=== PATIENT | male | born 1970 | race Caucasian/White ===

== ENCOUNTER 2017-01-03 21:04 | Emergency (ER) | payer OTHER ==
[~2017-01-03] VITALS: Ht 180.3 cm; Wt 139.2 kg
[~2017-01-03 21:04] MED LIST: ASPI81TA28 PO; ATOR-26 PO; DOCU-94 PO; HMLI SC; HYD10 PO; INSDGI SC; ISOS30TA3 PO; LEVO125T5 PO; NTRGSL/4 UT; NYSTOIN5; PRT/20 PO
[2017-01-03 21:16] VITALS: TEMP 36.8; Ht 180.3 cm; Wt 139.2 kg
[2017-01-03] MEDS ORDERED: KETOROLAC TROMETHAMINE 30 MG/ML VIAL IV STA (21:53)
[2017-01-03] MEDS ORDERED: SODIUM CHLORIDE 0.9% 500ML 500 ML IV STA (21:53)
[2017-01-03] MEDS ORDERED: SODIUM CHLORIDE 0.9% 1000ML 1,000 ML IV STA (21:53)
[2017-01-03 22:14] VITALS: O2SAT 98
[2017-01-03 22:20] LABS: BASO % 0.2 %; BASO ABS # 0.01 K/uL (0-0.2); COMPLETE YES; EOS % 1.6 %; HEMATOCRIT 37.3 % (42-52); IG% 0.2 %; LYMPH % 21.4 %; MEAN CORPUSCULAR HEMOGLOBIN 31.7 pg (25-34); MEAN CORPUSCULAR HGB CONC 34.9 g/dl (32-36); MEAN PLATELET VOLUME 11.6 fL (7.4-10.4); MONO % 5.7 %; NEUT % 70.9 %; PLATELET COUNT 190 K/uL (130-400)
--- NOTE | 2017-01-03 22:28 | DIAGNOSTIC IMAGING REPORT ---
SINGLE VIEW CHEST CLINICAL HISTORY: Atypical chest pain. FINDINGS: An AP, portable, upright chest radiograph is compared to study dated 08/07/2015. The patient is status post midline sternotomy. The cardiomediastinal silhouette is unremarkable. There is minimal bibasilar atelectasis. The lungs and pleural spaces are otherwise clear. No pneumothorax is seen. The bony thorax is grossly intact. IMPRESSION: No active disease in the chest. Electronically signed by: Adalberto Heart M.D. 01/03/2017 10:26 PM Dictated Date/Time: 01/03/2017 10:26 PM
[2017-01-03 22:38] LABS: ALT/SGPT 31 U/L (12-78); BLOOD UREA NITROGEN 25 mg/dl (7-18); BUN/CREATININE RATIO 22.6 (10-20); CARBON DIOXIDE 29 mmol/L (21-32); CHLORIDE 106 mmol/L (98-107); GLUCOSE 90 mg/dl (70-99); POTASSIUM 4.2 mmol/L (3.5-5.1); SODIUM 141 mmol/L (136-145)
[2017-01-03] MEDS ORDERED: HYDR10TA52 PO (22:39)
[2017-01-03] MEDS ORDERED: PANT40TA2 PO (22:39)
[2017-01-03] MEDS ORDERED: INSU100I SC (22:39)
[2017-01-03] MEDS ORDERED: INSDGI SC (22:39)
[2017-01-03 22:47] LABS: CALCIUM 8.6 mg/dl (8.5-10.1)
[2017-01-03 22:49] LABS: ALKALINE PHOSPHATASE 65 U/L (45-117); AST/SGOT 18 U/L (15-37)
[2017-01-03 23:16] LABS: LYME DISEASE AB IGM NEG (NEG)
[2017-01-03 23:17] LABS: LYME DISEASE AB IGG NEG (NEG)
--- NOTE | 2017-01-04 00:36 | EMERGENCY ROOM VISIT NOTE ---
History First contact with patient: 21:37 Chief Complaint: WRIST PAIN Stated Complaint: JOINTS HURT, BREAKING OUT ON CHESTM GAS History of Present Illness The patient is a 46 year old male who presents to the Emergency Room with complaints of myalgias, arthralgias, leg pain or swelling, intermittent heartburn for the past few days and fatigue. Patient also complains of a rash to his abdomen. Patient denies current chest pain, dyspnea, abdominal pain, fevers, headache, lightheadedness, dizziness. He is tolerating by mouth fluids and food. He is unsure if he was bitten by a tick. Review of Systems See HPI for pertinent positives & negatives. A total of 10 systems reviewed and were otherwise negative. Past Medical/Surgical History Medical Problems: (1) Diabetes (2) Heart disease (3) Traumatic injury of head Surgical Problems: (1) Hx of CABG Family History Cancer Diabetes mellitus FH: heart disease Social History Smoking Status: Never Smoker Alcohol Use: occasionally Drug Use: cocaine Marital Status: Housing Status: lives with significant other Occupation Status: employed Current/Historical Medications Scheduled Aspirin (Aspirin Ec), 81 MG PO DAILY Atorvastatin (Lipitor), 80 MG PO DAILY Docusate Sodium (Colace), 200 MG PO QAM Hydrocortisone (Cortef), 10 MG PO QAM Insulin Glargine (Lantus), 30 UNITS SC QPM Insulin Lispro (Human) (Humalog), 1 DOSE SC UD Levothyroxine Sodium (Levothyroxine Sodium), 125 MCG PO DAILY Pantoprazole (Pantoprazole Sodium), 40 MG PO DAILY Allergies Coded Allergies: No Known Allergies (Unverified , 09/09/15) Physical Exam Vital Signs Date Time Temp Pulse Resp B/P Pulse Ox O2 Delivery O2 Flow Rate FiO2 01/03/17 23:14 80 20 123/72 95 01/03/17 22:22 83 20 112/71 98 Room Air 01/03/17 22:15 86 01/03/17 22:14 98 Room Air 01/03/17 22:14 98 Room Air 01/03/17 21:16 36.8 92 18 119/71 95 Room Air Physical Exam VITALS: Vitals are noted on the nurse's note and reviewed by myself. Vital signs stable. GENERAL: Pleasant male, in no acute distress, nondiaphoretic, well-developed well-nourished. SKIN: Abdomen with 4 1 cm x 1 cm circular erythematous nonraised blanchable dermatitis The rest of the skin was without rashes, erythema, edema, or bruising. There is no tenting of the skin. Capillary reflex less than 2 seconds. HEAD: Normocephalic atraumatic. EARS: External auditory canals clear, tympanic membranes pearly figueroa without erythema or effusion bilaterally. EYES: Pupils equal round and reactive to light and accommodation. Conjunctivae without injection, sclerae without icterus. Extraocular movements intact. NOSE: Patent, turbinates without inflammation or discharge. MOUTH: Mucous membranes moist. Pharynx without erythema or exudate. Uvula midline. Airway patent. Tongue does not deviate. NECK: Supple without nuchal rigidity. No lymphadenopathy. No thyromegaly. Cervical spine is nontender. No JVD. HEART: Regular rate and rhythm without murmurs gallops or rubs. LUNGS: Clear to auscultation bilaterally without wheezes, rales or rhonchi. No dullness to percussion. No retractions or accessory muscle use. ABDOMEN: Positive bowel sounds x 4. Normal tympanic percussion. Soft, protuberant, obese, nontender, without masses or organomegaly. Fuller sign negative. No guarding or rebound tenderness. MUSCULOSKELETAL: No muscle atrophy, erythema, noted. Trace pedal edema bilaterally. Varicose veins bilaterally to the lower extremity is. Bilateral calves minimally tender to palpation. Pedal pulses +2 equal present bilaterally. NEURO: Patient was alert and oriented to person place and time. Normal sensation to light and sharp touch. No focal neurological deficits. Medical Decision & Procedures Laboratory Results 01/03/17 22:10 Red Blood Count 4.10, Mean Corpuscular Volume 91.0, Mean Corpuscular Hemoglobin 31.7, Mean Corpuscular Hemoglobin Concent 34.9, Mean Platelet Volume 11.6, Neutrophils (%) (Auto) 70.9, Lymphocytes (%) (Auto) 21.4, Monocytes (%) (Auto) 5.7, Eosinophils (%) (Auto) 1.6, Basophils (%) (Auto) 0.2, Neutrophils # (Auto) 3.97, Lymphocytes # (Auto) 1.20, Monocytes # (Auto) 0.32, Eosinophils # (Auto) 0.09, Basophils # (Auto) 0.01 01/03/17 22:10 Test 01/03/17 22:10 White Blood Count 5.60 K/uL (4.8-10.8) Red Blood Count 4.10 M/uL (4.7-6.1) Hemoglobin 13.0 g/dL (14.0-18.0) Hematocrit 37.3 % (42-52) Mean Corpuscular Volume 91.0 fL (80-100) Mean Corpuscular Hemoglobin 31.7 pg (25-34) Mean Corpuscular Hemoglobin Concent 34.9 g/dl (32-36) Platelet Count 190 K/uL (130-400) Mean Platelet Volume 11.6 fL (7.4-10.4) Neutrophils (%) (Auto) 70.9 % Lymphocytes (%) (Auto) 21.4 % Monocytes (%) (Auto) 5.7 % Eosinophils (%) (Auto) 1.6 % Basophils (%) (Auto) 0.2 % Neutrophils # (Auto) 3.97 K/uL (1.4-6.5) Lymphocytes # (Auto) 1.20 K/uL (1.2-3.4) Monocytes # (Auto) 0.32 K/uL (0.11-0.59) Eosinophils # (Auto) 0.09 K/uL (0-0.5) Basophils # (Auto) 0.01 K/uL (0-0.2) RDW Standard Deviation 43.4 fL (36.4-46.3) RDW Coefficient of Variation 13.1 % (11.5-14.5) Immature Granulocyte % (Auto) 0.2 % Immature Granulocyte # (Auto) 0.01 K/uL (0.00-0.02) Anion Gap 6.0 mmol/L (3-11) Est Creatinine Clear Calc Drug Dose 119.7 ml/min Estimated GFR () 92.8 Estimated GFR (Non- 80.1 BUN/Creatinine Ratio 22.6 (10-20) Calcium Level 8.6 mg/dl (8.5-10.1) Magnesium Level 2.0 mg/dl (1.8-2.4) Total Bilirubin 0.4 mg/dl (0.2-1) Direct Bilirubin < 0.1 mg/dl (0-0.2) Aspartate Amino Transf (AST/SGOT) 18 U/L (15-37) Alanine Aminotransferase (ALT/SGPT) 31 U/L (12-78) Alkaline Phosphatase 65 U/L (45-117) Troponin I < 0.015 ng/ml (0-0.045) Total Protein 7.2 gm/dl (6.4-8.2) Albumin 3.7 gm/dl (3.4-5.0) Thyroid Stimulating Hormone (TSH) 2.140 uIu/ml (0.300-4.500) Lyme Disease IgG Antibody NEG (NEG) Lyme Disease IgM Antibody NEG (NEG) Medications Administered Medications (Trade) Dose Ordered Sig/Oleg Route Start Time Stop Time Status Last Admin Dose Admin Ketorolac Tromethamine 30 mg 30 mg NOW STAT IV 01/03/17 21:53 01/03/17 21:56 DC 01/03/17 22:21 30 MG Sodium Chloride 1,000 ml @ 125 mls/hr Q8H STAT IV 01/03/17 21:53 01/04/17 05:52 01/03/17 22:21 125 MLS/HR Sodium Chloride (Nss 500ml) 500 ml @ 999 mls/hr Q31M STAT IV 01/03/17 21:53 01/03/17 22:23 DC 01/03/17 21:53 999 MLS/HR ED Course Prior records/ancillary studies reviewed and summarized above. Nursing notes reviewed. Additional history obtained from family. The patient's history was concerning for fatigue, joint pains, heartburn. Differential diagnosis: Etiologies such as metabolic, autoimmune, Lyme's, infection, hypo/hyperglycemia , electrolyte abnormalities, cardiac sources, intracerebral event, toxicologic, neurologic, as well as others were entertained. Physical examination: As above. ER treatment provided: IV Lock Toradol, IV fluids On reassessment the patient felt better. Diagnostics interpretation by me: ECG: Normal sinus, normal intervals, no acute ST-T wave changes, rate of 84. Normal sinus rhythm interpreted by myself The labs revealed out anemia. No worrisome leukocytosis. LATONAY pending Imaging studies: pending Imaging studies: CLINICAL HISTORY: Atypical chest pain. FINDINGS: An AP, portable, upright chest radiograph is compared to study dated 08/07/2015. The patient is status post midline sternotomy. The cardiomediastinal silhouette is unremarkable. There is minimal bibasilar atelectasis. The lungs and pleural spaces are otherwise clear. No pneumothorax is seen. The bony thorax is grossly intact. IMPRESSION: No active disease in the chest. Electronically signed by: Adalberto Heart M.D. 01/03/2017 10:26 PM Dictated Date/Time: 01/03/2017 10:26 PM Exam and history seem consistent with arthralgias and fatigue with unclear etiology. This could be an autoimmune disease. This is pending. He is advised to follow-up as scheduled tomorrow with his family care DrLinda for further evaluation and workup. Patient was neurovascularly and neurologically intact. No signs of sepsis. He does not have acute abdomen on exam. He was advised to rest, stay well-hydrated and to follow-up as scheduled family care here in the ER sooner for abdominal pain, chest pain, dyspnea, worsening signs or symptoms or as needed. By the evaluation outlined above emergent etiologies such as infection, electrolyte abnormalities, cardiac sources, intracerebral event, toxologic, neurologic, abnormalities blood glucose, metabolic, as well as others were deemed relatively unlikely. The pt informed about the findings as listed above. All questions were answered and pleased with the treatment. Return instructions were outlined and the patient was discharged in stable condition. Referral: The patient was referred back to primary care physician for follow-up in 2 to 3 days for a recheck of the current condition. Case reviewed with my attending Medical Decision As above Impression Primary Impression: arthralgias Additional Impressions: Localized swelling of both lower legs GERD (gastroesophageal reflux disease) Departure Information Dispostion Home / Self-Care Condition GOOD Referrals Carol Morley, C.R.N.P (PCP) Forms WORK / SCHOOL INSTRUCTIONS, HOME CARE DOCUMENTATION FORM, IMPORTANT VISIT INFORMATION Patient Instructions My [facility] Additional Instructions Acetaminophen(Tylenol) may be used for fever or pain. Use 1000mg every six hours as needed. Avoid using more than 3000mg in a 24 hour period. Rest and drink plenty of fluids as tolerated. Continue current medications. Avoid strenuous activities and anything that worsens your pain. Resume normal activities once your symptoms resolve. Return to the ER immediately for worsening or persistent fatigue, abdominal pain , vomiting, fevers, chest pains, difficulty breathing, worsening of your condition, or as needed. Follow up with your primary physician tomorrow scheduled for a recheck of your current condition. Review your LATONYA panel with your family care doctor. Problem Qualifiers Additional Impressions: GERD (gastroesophageal reflux disease) Esophagitis presence: esophagitis presence not specified Qualified Codes: K21.9 - Gastro-esophageal reflux disease without esophagitis
[2017-01-04 01:01] VITALS: BP 128/70; PULSE 74; O2SAT 98
--- NOTE | 2017-01-04 06:28 | DIAGNOSTIC IMAGING REPORT ---
BILATERAL LOWER EXTREMITY VENOUS DOPPLER HISTORY: Pain. Edema. B leg pain/swelling COMPARISON STUDY: None. FINDINGS: There is normal compressibility, flow, and augmentation within the bilateral lower extremity deep venous systems. IMPRESSION: No DVT within the right or left lower extremity. Electronically signed by: Ambrocio Ruffin M.D. 01/04/2017 6:26 AM Dictated Date/Time: 01/04/2017 6:26 AM
== END 2017-01-04 01:03 | disposition home or self-care (01) ==
LOC: C.EDB 21:05 → C.EDC 01-04 01:03
DX: M25.50 Pain in unspecified joint (principal); R22.41 Localized swelling, mass and lump, right lower limb; R22.42 Localized swelling, mass and lump, left lower limb; K21.9 Gastro-esophageal reflux disease without esophagitis; E11.9 Type 2 diabetes mellitus without complications; I51.9 Heart disease, unspecified; Z95.1 Presence of aortocoronary bypass graft; Z87.820 Personal history of traumatic brain injury; Z79.82 Long term (current) use of aspirin; Z79.4 Long term (current) use of insulin; Z79.899 Other long term (current) drug therapy; Z80.9 Family history of malignant neoplasm, unspecified; Z83.3 Family history of diabetes mellitus; Z82.49 Family history of ischemic heart disease and other diseases of the circulatory system

== ENCOUNTER → 2017-01-04 | Outpatient (CLI) | payer OTHER ==
[~2017-01-04] MED LIST changes: -HMLI SC; -HYD10 PO; +HYDR10TA52 PO; +INSU100I SC; -ISOS30TA3 PO; -NTRGSL/4 UT; -NYSTOIN5; +PANT40TA2 PO; -PRT/20 PO
== END | disposition home or self-care (01) ==
LOC: C.LABPVFM 09:52
PROVIDERS: ATTEND Nurse Practitioner
DX: K21.9 Gastro-esophageal reflux disease without esophagitis (principal); R14.2 Eructation; M25.50 Pain in unspecified joint

== ENCOUNTER → 2017-07-21 | Outpatient (CLI) | payer OTHER ==
[2017-07-21 12:55] LABS: HEMATOCRIT 38.8 % (42-52); MEAN CELL VOLUME 91.9 fL (80-100); MEAN CORPUSCULAR HEMOGLOBIN 30.8 pg (25-34); MEAN CORPUSCULAR HGB CONC 33.5 g/dl (32-36); PLATELET COUNT 210 K/uL (130-400); RED BLOOD COUNT 4.22 M/uL (4.7-6.1)
[2017-07-21 13:45] LABS: ESTIMATED AVERAGE GLUCOSE 315 mg/dl; HA1C FLAG Normal (Normal)
[2017-07-21 13:54] LABS: ALT/SGPT 38 U/L (12-78); BLOOD UREA NITROGEN 22 mg/dl (7-18); BUN/CREATININE RATIO 21.8 (10-20); CALCIUM 9.3 mg/dl (8.5-10.1); CARBON DIOXIDE 26 mmol/L (21-32); CHLORIDE 99 mmol/L (98-107); CREATININE 0.99 mg/dl (0.60-1.40); GLUCOSE 349 mg/dl (70-99); POTASSIUM 4.7 mmol/L (3.5-5.1); SODIUM 133 mmol/L (136-145)
[2017-07-21 13:59] LABS: ALB/GLOB RATIO 0.9 (0.9-2); ALKALINE PHOSPHATASE 79 U/L (45-117); AST/SGOT 19 U/L (15-37)
[2017-07-21 14:01] LABS: CHOLESTEROL/HDL RATIO 7.6
== END | disposition home or self-care (01) ==
LOC: C.LABPVFM 07:28
PROVIDERS: ATTEND Nurse Practitioner
DX: E11.9 Type 2 diabetes mellitus without complications (principal); I25.10 Atherosclerotic heart disease of native coronary artery without angina pectoris; I95.9 Hypotension, unspecified; R42 Dizziness and giddiness; E78.5 Hyperlipidemia, unspecified

== ENCOUNTER 2023-12-20 11:46 | Observation (INO) ==
--- NOTE | 2023-12-20 12:26 | Emergency Department Note ---
Impression & Plan Chest pain, Abnormal EKG ED Provider Note NAME: ALEJO ENGLISH II AGE: 53 SEX: M : 1970 ARRIVES VIA: Ambulance INFORMANT: Patient, ED PROVIDER(S): Erik Vo DO CHIEF COMPLAINT: Chest pain HPI: The patient is a 53-year-old male who presented to the emergency department for an evaluation of chest pain. The patient describes left-sided chest pain that began with exertion. The patient states over the last few days he was not feeling well. He states that he was walking and he started having a pressure over the left side of his chest. He went to see his family doctor. He was treated with aspirin. At this time he states he has no pain. He was told that his EKG was abnormal in the office and 911 was called. The patient arrived via ambulance. The patient denies having any shortness of breath at this time. He does have a history of coronary artery disease and bypass. The patient states that his bypass was 9 years ago. ROS: See above HPI for pertinent positives & negatives. A total of 10 systems reviewed and were otherwise negative. PAST MEDICAL HISTORY: See Below PAST SURGICAL HISTORY: See Below FAMILY HISTORY: See Below SOCIAL HISTORY: See Below HOME MEDICATIONS: See Below ALLERGIES: See Below VITALS: See Below PHYSICAL EXAMINATION: GENERAL: Patient is awake alert in no acute distress patient is resting comfortably and showing no signs of anxiety EYES: the right eye is patched because of a previous injury. EARS, NOSE, MOUTH AND THROAT: The nose is without any evidence of any deformity. NECK: The neck is nontender and supple. RESPIRATORY: Normal respiratory effort is noted there is no evidence of wheezing rhonchi or rales CARDIOVASCULAR: Regular rate and rhythm noted there no murmurs rubs or gallops normal S1 normal S2. GASTROINTESTINAL: The abdomen is soft. Abdomen is nontender. MUSCULOSKELETAL/EXTREMITIES: There is no evidence of gross deformity full range of motion is noted in the hips and shoulders. SKIN: Pedal edema is noted bilaterally NEUROLOGIC: Patient is awake alert and oriented x3 MEDICAL DECISION MAKING: The patient is a 53-year-old male who presented to the emergency department from his family doctor's office. The patient was seen for chest pain. The patient has a history of coronary artery disease with a history of coronary artery bypass. The patient was having chest pain that was relieved with nitroglycerin. It was not exertional in nature but given the patient's multiple risk factors the patient was felt to be a better candidate for inpatient management. I discussed the patient's laboratory and radiographic studies with him. I discussed the limitations of the emergency department workup for chest pain with him. Ultimately given his risk factors I discussed his condition with the on- call [facility] hospitalist. They have agreed to evaluate the patient in the emergency department for further management and disposition Triage Nursing notes reviewed. Prior medical records reviewed Vital Signs: reviewed and remarkable for elevated blood pressure. Differential diagnosis: Cardiac ischemia, aortic dissection, pulmonary embolism, pneumothorax, pneumonia, pericarditis, myocarditis, esophageal rupture, GERD, cholecystitis, pancreatitis, musculoskeletal, as well as other pathologies. ER treatment provided: See below Diagnostics interpreted by me: ECG: EKG was obtained in the emergency department. My interpretation is normal sinus rhythm at 76 bpm. There was no ectopy. Poor R wave progression was noted. T wave inversions were noted in the high lateral leads. This was compared to a tracing from July 20, 2023. No changes were noted. A prehospital EKG was reviewed. My interpretation is normal sinus rhythm at 79 bpm. There is no ectopy. Poor R wave progression was noted. This compares similar to the tracing obtained in the emergency department. A tracing that was obtained in the patient's family practice office was reviewed. My interpretation is normal sinus rhythm at 85 bpm. There was no ectopy. High lateral T wave abnormalities noted. Poor R wave progression was noted. This compares similar to the tracing obtained in the emergency department. Cardiac Monitoring: An order was placed for continuous cardiac monitoring. The monitor shows a rate of 79 bpm with sinus rhythm. Laboratory studies: As stated above and show below. Imaging studies: See below. Radiographic imaging was reviewed by myself Consultation(s): I discussed this case with Dr. Harper [facility]. Past Med/Surg History Medical History Chronic venous insufficiency COVID-19 Peripheral neuropathy Well adult exam Gout CAD (coronary artery disease) Vitamin D deficiency GERD (gastroesophageal reflux disease) Hypothyroidism Hyperlipidemia Traumatic injury of head Surgical History History of eye surgery History of ankle surgery Hx of CABG Family History Sister Anxiety Father Diabetes Cardiac disorder Mother Breast cancer Ovarian cancer Denies family history of Prostate cancer Myocardial infarction Colorectal cancer Social History Smoking Status: Never smoker Second Hand Exposure: No; Do You Dip or Chew Tobacco: No; Hx Alcohol Use: Yes Hx Substance Use: No Preferred Language: Filipino Communication Ability: Effective Visual Impairment: Limited Hearing Ability: Normal Molasses Feed Mixer Required: No marital status: Current Living Situation: Alone current occupational status: employed current occupation: Self Employeed How many Children do You have: 3 Feels Safe at Home: Yes Childhood Exposure to Second-Hand Smoke: No Diet: regular caffeine: Yes Dental Care, Regularly: Yes Physical Activity Frequency: Daily Seatbelt Use: sometimes Sunscreen Use: No Allergies Allergies Allergy/AdvReac Type Severity Reaction Status Date / Time dulaglutide [From [facility]] AdvReac Severe GI UPSET Verified 12/20/23 10:59 Home Meds Home Medications Medication Instructions Recorded Confirmed aspirin 81 mg tablet,delayed 81 mg PO QAM 04/02/19 12/20/23 release cholecalciferol (vitamin D3) 1,250 1,250 mcg PO YE 06/07/20 12/20/23 mcg (50,000 unit) capsule ibuprofen 200 mg tablet 200 mg PO Q6H PRN Pain 12/20/20 12/20/23 Previous Rx's Medication Instructions Recorded blood-glucose meter,continuous #1 ea 11/24/21 (Dexcom G6 Catalyst Unit Operator) diclofenac sodium 75 mg 75 mg PO BID PRN Gout - Pain #90 05/03/22 tablet,delayed release tabs nystatin-triamcinolone 100,000 1 applic topical BID #30 grams 06/01/22 unit/g-0.1 % topical cream blood-glucose sensor (Dexcom G6 #3 ea 12/13/22 Sensor device) blood-glucose transmitter (Dexcom #1 ea 12/13/22 G6 Transmitter device) hydrochlorothiazide 25 mg tablet 25 mg PO DAILY #90 tabs 01/06/23 losartan 25 mg tablet 25 mg PO DAILY #90 tabs 05/24/23 hydrocortisone 10 mg tablet 10 mg PO QAM #90 tabs 06/02/23 nitroglycerin 0.4 mg sublingual 0.4 mg sublingual Q5M PRN chest 08/25/23 tablet pain #25 tabs polymyxin B sulfate 10,000 1 drp ophthalmic (eye) Q3H 10 days 10/19/23 unit-trimethoprim 1 mg/mL eye drops #10 mL insulin glargine 100 unit/mL (3 55 unit (0.55 mL) subcut QPM #45 mL 11/11/23 mL) subcutaneous pen (Basaglar KwikPen U-100 Insulin) insulin lispro 100 unit/mL 30 unit (0.3 mL) subcut AC #90 mL 11/11/23 subcutaneous pen (Humalog KwikPen (U-100) Insulin) lorazepam 0.5 mg tablet 0.5 mg PO DAILY PRN anxiety #30 11/11/23 tabs pen needle, diabetic 31 gauge x #100 ea 11/25/23 14" (Comfort EZ [place]) pen needle, diabetic 32 gauge x #100 ea 11/25/2308/25" (BD Ultra-Fine Micro Pen Needle) levothyroxine 125 mcg tablet 125 mcg PO DAILYBB #90 tabs 11/29/23 pantoprazole 40 mg tablet,delayed 40 mg PO QAM #90 tabs 11/29/23 release rosuvastatin 40 mg tablet (Crestor) 40 mg PO HS #90 tabs 11/30/23 Results & Data (ED) Vital Signs Vital Signs - 24 hr 12/20/23 11:53 12/20/23 11:54 12/20/23 13:05 Temperature 36.1 C L Temperature Source Oral Pulse Rate 93 H Pulse Rate from SpO2 Sensor Respiratory Rate 20 Respiratory Effort / Characteristics Non-Labored Respiratory Depth Normal Blood Pressure 142/74 H Blood Pressure Mean 96 Pulse Oximetry 95 95 96 Oxygen Delivery Method Room Air Room Air Room Air Oxygen Flow Rate 0 Sepsis Recent Fever Within 48 Hours No Sepsis New/Unexplained Change in Mental Status N/A Sepsis Action Taken by Nursing No Action Required 12/20/23 13:46 12/20/23 13:46 12/20/23 14:00 Temperature Temperature Source Pulse Rate 74 75 79 Pulse Rate from SpO2 Sensor 75 79 Respiratory Rate 11 L 14 Respiratory Effort / Characteristics Respiratory Depth Blood Pressure Blood Pressure Mean Pulse Oximetry 95 93 Oxygen Delivery Method Oxygen Flow Rate Sepsis Recent Fever Within 48 Hours Sepsis New/Unexplained Change in Mental Status Sepsis Action Taken by [facility] Medications Current Medication List: was personally reviewed by me Laboratory Data Attestation: I reviewed the patient's lab results. 12/20/23 11:50 12/20/23 11:50 Lab Results 12/20/23 Range/Units 11:50 WBC 5.49 (4.8-10.8) K/ul RBC 3.40 L (4.70-6.10) M/uL Hgb 10.2 L (14.0-18.0) g/dl Hct 30.0 L (42.0-52.0) % MCV 88.2 (80.0-100.0) fL MCH 30.0 (25.0-34.0) pg MCHC 34.0 (32.0-36.0) g/dL RDW Std Deviation 42.2 (36.4-46.3) fL RDW Coeff of Yuki 13.1 (11.5-14.5) % Plt Count 198 (130-400) K/uL MPV 11.4 (9.4-12.4) fL Immature Gran % (Auto) 0.5 % Neut % (Auto) 63.6 % Lymph % (Auto) 25.9 % [place] % (Auto) 7.8 % Eos % (Auto) 2.0 % Baso % (Auto) 0.2 % Neut # (Auto) 3.49 (1.40-6.50) K/uL Lymph # (Auto) 1.42 (1.20-3.40) K/uL [place] # (Auto) 0.43 (0.11-0.59) K/uL Eos # (Auto) 0.11 (0.00-0.50) K/uL Baso # (Auto) 0.01 (0.00-0.20) K/uL Immature Gran # (Auto) 0.03 (0.01-0.20) K/uL PT 10.9 (9.0-12.0) Seconds INR 1.0 (0.9-1.1) APTT 30 (21-31) Seconds PTT Ratio 1.1 Sodium 136 (136-145) mmol/L Potassium 4.0 (3.5-5.1) mmol/L Chloride 101 (98-107) mmol/L Carbon Dioxide 27 (21-32) mmol/L Anion Gap 8 (3-11) BUN 31 H (6-23) mg/dl Creatinine 1.04 (0.6-1.4) mg/dl Est Cr Clr Drug Dosing 117.4 ml/min Est GFR ( Amer) 94.6 ml/min Est GFR (Non-Af Amer) 81.6 ml/min BUN/Creatinine Ratio 29.8 H (10-20) Glucose 192 H (70-99(Fasting)) mg/dl Calcium 8.3 L (8.6-10.3) mg/dl Total Bilirubin 0.4 (0.2-1.0) mg/dl AST 29 (13-39) U/L ALT 28 (7-52) U/L Alkaline Phosphatase 57 (34-104) U/L Troponin I High Sens 4.8 (0-20) pg/ml Total Protein 6.7 (6.0-8.3) gm/dl Albumin 3.7 (3.4-5.0) gm/dl Globulin 3.0 (2.5-4.0) gm/dl Albumin/Globulin Ratio 1.2 (0.9-2) Lipase 6 L (11-82) U/L Imaging Data Attestation: I personally reviewed and interpreted this imaging study as follows: My Impression: 1 view chest x-ray was obtained in the emergency department. My interpretation is no free air, final report below. Radiologist's Impression: Chest X-Ray 12/20/23 12:02 XR chest 1V portable HISTORY: Chest pain, nonspecific COMPARISON: Chest 07/20/2023. FINDINGS: No pneumothorax. No pleural effusions. The cardiac silhouette remains mildly enlarged. No evidence for pulmonary edema. The right lung is clear. There are poststernotomy changes. Small patchy left upper lobe airspace opacities persist. IMPRESSION: Small patchy left upper lobe airspace opacity persists. Therefore, this is unlikely to represent an acute process. Follow-up nonemergent chest CT recommended to exclude the possibility of a pulmonary lesion. ACT 112: Negative or not required by law. Electronically signed by: Rigoberto Ashford M.D. 12/20/2023 12:46 PM Discharge Plan Visit Data Chief Complaint: Chest Pain Stated Complaint: CHEST PAIN ED Provider: Erik Vo Discharge Problem: Chest pain, Abnormal EKG Patient Disposition: Being Evaluated by Hospitalist Forms Stand Alone Forms: My [facility] [address] Prescriptions Prescriptions: No Action (DME) Dexcom G6 Catalyst Unit Operator Misc See Rx Instructions .ROUTE .MEDSUPPLY Qty: 1 0RF Rx Instructions: test 4 x a day diclofenac sodium 75 mg tablet,delayed release (DR/EC) 75 mg PO BID PRN (Reason: Gout - Pain) Qty: 90 3RF (DME) Dexcom G6 Sensor Device See Rx Instructions .ROUTE .MEDSUPPLY Qty: 3 5RF Rx Instructions: test 4 x a day (DME) Dexcom G6 Transmitter Device See Rx Instructions .ROUTE .MEDSUPPLY Qty: 1 0RF Rx Instructions: test 4 x a day losartan 25 mg tablet 25 mg PO DAILY Qty: 90 3RF polymyxin B sulf-trimethoprim 10,000 unit- 1 mg/mL drops 1 drp ophthalmic (eye) Q3H 10 Days Qty: 10 0RF Rx Instructions: while awake; do not exceed 6 doses in 24 hours insulin glargine [Basaglar KwikPen U-100 Insulin] 100 unit/mL (3 mL) insulin pen 55 unit subcut QPM Qty: 45 1RF insulin lispro [Humalog KwikPen Insulin] 100 unit/mL insulin pen 30 unit subcut AC MDD 90u Qty: 90 3RF lorazepam 0.5 mg tablet 0.5 mg PO DAILY PRN (Reason: anxiety) Qty: 30 0RF Rx Instructions: 1 tab at bedtime (DME) pen needle, diabetic [BD Ultra-Fine Micro Pen Needle] 32 gauge x 1/4" needle See Dose Instructions .ROUTE .MEDSUPPLY Qty: 100 3RF Rx Instructions: As directed (DME) pen needle, diabetic [Comfort EZ [place]] 31 gauge x 1/4" needle See Rx Instructions .Route Qty: 100 3RF Rx Instructions: As directed pantoprazole 40 mg tablet,delayed release (DR/EC) 40 mg PO QAM Qty: 90 3RF levothyroxine 125 mcg tablet 125 mcg PO DAILYBB Qty: 90 3RF rosuvastatin [Crestor] 40 mg tablet 40 mg PO HS Qty: 90 3RF hydrocortisone 10 mg tablet 10 mg PO QAM Qty: 90 3RF hydrochlorothiazide 25 mg tablet 25 mg PO DAILY Qty: 90 3RF nitroglycerin 0.4 mg tablet, sublingual 0.4 mg sublingual Q5M PRN (Reason: chest pain) Qty: 25 4RF Rx Instructions: up to 3 doses. If no resolution of Chest pain after 5 min, call 911. nystatin-triamcinolone 100,000-0.1 unit/g-% cream 1 applic topical BID Qty: 30 3RF aspirin 81 mg Tablet,Delayed Release (Dr/Ec) 81 mg PO QAM cholecalciferol (vitamin D3) 1,250 mcg (50,000 unit) capsule 1,250 mcg PO YE Rx Instructions: 1,250 mcg PO One time weekly; Tuesday ibuprofen 200 mg Tablet 200 mg PO Q6H PRN (Reason: Pain) Referrals Referrals: Carol Morley CRNP [Primary Care Provider] - Discharge Problem: Chest pain Qualifiers: Chest pain type: unspecified Qualified Code(s): R07.9 - Chest pain, unspecified
[2023-12-20 12:30] LABS: Basophils # (auto) 0.01 K/uL (0.00-0.20); Basophils % (auto) 0.2 %; Eosinophils # (auto) 0.11 K/uL (0.00-0.50); Hemoglobin 10.2 g/dl (14.0-18.0); Immature Granulocytes # (auto) 0.03 K/uL (0.01-0.20); Immature Granulocytes % (auto) 0.5 %; Lymphocytes # (auto) 1.42 K/uL (1.20-3.40); Lymphocytes % (auto) 25.9 %; Mean Corpuscular Volume 88.2 fL (80.0-100.0); Mean Platelet Volume 11.4 fL (9.4-12.4); Monocytes # (auto) 0.43 K/uL (0.11-0.59); Monocytes % (auto) 7.8 %; Neutrophils # (auto) 3.49 K/uL (1.40-6.50); Neutrophils % (auto) 63.6 %; Platelet Count 198 K/uL (130-400); RDW Coefficient of Variation 13.1 % (11.5-14.5); RDW Standard Deviation 42.2 fL (36.4-46.3); White Blood Count 5.49 K/ul (4.8-10.8)
[2023-12-20 12:45] LABS: Albumin Globulin Ratio 1.2 (0.9-2); Albumin Level 3.7 gm/dl (3.4-5.0); BUN Creatinine Ratio 29.8 (10-20); Bilirubin,Total 0.4 mg/dl (0.2-1.0); Calcium 8.3 mg/dl (8.6-10.3); Creatinine Clr Calc Pharmacy 117.4 ml/min; Est GFR (African American) 94.6 ml/min; Est GFR (Non-African American) 81.6 ml/min; Total Protein 6.7 gm/dl (6.0-8.3)
--- NOTE | 2023-12-20 12:47 | XRay Report ---
XR chest 1V portable HISTORY: Chest pain, nonspecific COMPARISON: Chest 07/20/2023. FINDINGS: No pneumothorax. No pleural effusions. The cardiac silhouette remains mildly enlarged. No e vidence for pulmonary edema. The right lung is clear. There are poststernotomy changes. Small patchy left upper lobe airspace opacities persist. IMPRESSION: Small patchy left upper lobe airspace opacity persists. Therefore, this is unlikely to represent an a cute process. Follow-up nonemergent chest CT recommended to exclude the possibility of a pulmonary le michelle. ACT 112: Negative or not required by law. Electronically signed by: Rigoberto Ashford M.D. 12/20/2023 12:46 PM
[2023-12-20 12:50] LABS: Partial Thromboplastin Ratio 1.1; Partial Thromboplastin Time 30 Seconds (21-31); Prothrombin Time 10.9 Seconds (9.0-12.0); Troponin I High Sensitivity 4.8 pg/ml (0-20)
[2023-12-20] MEDS ORDERED: GLUCAGON FOR INJ 1 MG VIAL SQ PRN (14:10)
[2023-12-20] MEDS ORDERED: GLUCOSE 40% GEL 15 GM TUBE PO PRN (14:10)
[2023-12-20] MEDS ORDERED: CARBOHYDRATES FOR HYPOGLYCEMIA PO PRN (14:10)
[2023-12-20] MEDS ORDERED: DEXTROSE 50% 50 ML SYRINGE IV PRN (14:10)
[2023-12-20] MEDS ORDERED: GLUCOSE 10 TAB/TUBE PO PRN (14:10)
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
[2023-12-20 15:16] LABS: Troponin I High Sensitivity 5.3 pg/ml (0-20)
--- NOTE | 2023-12-20 16:15 | Electrocardiogram Report ---
Test Reason : Blood Pressure : / mmHG Vent. Rate : 076 BPM Atrial Rate : 076 BPM P-R Int : 196 ms QRS Dur : 102 ms QT Int : 400 ms P-R-T Axes : 033 -43 066 degrees QTc Int : 450 ms Normal sinus rhythm Left axis deviation Septal infarct (cited on or before 20-DEC-2023) Possible Lateral infarct (cited on or before 20-DEC-2023) Abnormal ECG When compared with ECG of 20-JUL-2023 15:44, No significant change was found Confirmed by Eugene Hardin ([id number]) on 12/20/2023 4:14:50 PM Referred By: Confirmed By:Eugene Hardin
--- NOTE | 2023-12-20 16:44 | Cardiology Consultation ---
Date of Consultation December 20, 2023 Assessment & Plan (1) Chest pain: (2) CAD (coronary artery disease): (3) Anemia: Plan 1. Chest discomfort: His chest discomfort sounds quite atypical, however his recollection of the pain before his bypass also sounds atypical. So far there is no evidence of myocardial injury by electrocardiogram or cardiac enzymes. The discomfort may not be cardiac in origin but that should be investigated. I do not think we need to go directly to a catheterization without objective findings and I will schedule him for a stress echo in the morning. If that is abnormal we probably should proceed to catheterization. He and his family are aware of that. 2. Coronary disease: He has known coronary disease and has had bypass surgery, he certainly could have had progression in the interim. There is no evidence of left ventricular dysfunction but that does not exclude angina and disease progression. 3. Anemia: He seems to have a progressive anemia which does raise the possibility that this discomfort is GI in origin. If his stress test is negative that might be an avenue for evaluation. History of Present Illness Reason for Consultation: Exertional chest pain Attending Physician: Ruben Harper, PhD, DO History of Present Illness This is a 53-year-old male with a history of diabetes mellitus, dyslipidemia and coronary artery disease. He has had coronary bypass surgery in the past on August 11, 2015 (two-vessel OD to the LAD, radial artery to the obtuse marginal). Prior to bypass surgery he had angina and an abnormal stress test. He has also had a number of venous procedures on his legs. He was last seen in our office by Dr. Donnelly on August 25, 2023. He was not complaining of angina, he was hypertensive which was treated. He presented to his PCP today and was reporting recent onset of chest pain and shortness of breath. This was with a short episode of walking. In addition he has not been feeling well for several days and he describes the discomfort as a pressure sensation under his left breast and over the left side of the chest but no other radiation. He received aspirin and he was transferred by ambulance to the emergency room. He was pain-free before he came to the emergency room, he believes the total duration of the discomfort was about 15 minutes. Of note his description of this discomfort is quite different than what he recalls the chest discomfort he had before bypass surgery. However that discomfort also sounds quite atypical, not exertional by his recollection but occurring at the end of the workday when he was sitting down send not sure any of these discomforts are anginal. He did have an echocardiogram performed in our office on September 15, 2023, this showed normal left ventricular size and function with an ejection fraction of 55 to 60% and mild concentric left ventricular hypertrophy. He had another echocardiogram done today which was technically difficult, left ventricular size and systolic function were normal and he had some diastolic dysfunction and an incidental atrial septal aneurysm was noted. Included a CBC where he was somewhat anemic, which has been present before but was worse today, and his high-sensitivity troponin is negative x 2. His electrocardiogram is abnormal but similar to prior electrocardiograms and showing no acute changes. A chest x-ray did not show acute changes. At the time my evaluation he is sitting in his bedside chair and is having no chest discomfort. Allergies Allergy/AdvReac Type Severity Reaction Status Date / Time dulaglutide [From [facility]] AdvReac Severe GI UPSET Verified 12/20/23 10:59 Home Medications Medication Instructions Recorded Confirmed Type aspirin 81 mg tablet,delayed 81 mg PO QAM 04/02/19 12/20/23 History release cholecalciferol (vitamin D3) 1,250 1,250 mcg PO YE 06/07/20 12/20/23 History mcg (50,000 unit) capsule ibuprofen 200 mg tablet 200 mg PO Q6H PRN Pain 12/20/20 12/20/23 History blood-glucose meter,continuous #1 ea 11/24/21 12/20/23 Rx (Dexcom G6 [employer]) diclofenac sodium 75 mg 75 mg PO BID PRN Gout - Pain #90 05/03/22 12/20/23 Rx tablet,delayed release tabs nystatin-triamcinolone 100,000 1 applic topical BID #30 grams 06/01/22 12/20/23 Rx unit/g-0.1 % topical cream blood-glucose sensor (Dexcom G6 #3 ea 12/13/22 12/20/23 Rx Sensor device) blood-glucose transmitter (Dexcom #1 ea 12/13/22 12/20/23 Rx G6 Transmitter device) hydrochlorothiazide 25 mg tablet 25 mg PO DAILY #90 tabs 01/06/23 12/20/23 Rx losartan 25 mg tablet 25 mg PO DAILY #90 tabs 05/24/23 12/20/23 Rx hydrocortisone 10 mg tablet 10 mg PO QAM #90 tabs 06/02/23 12/20/23 Rx nitroglycerin 0.4 mg sublingual 0.4 mg sublingual Q5M PRN chest 08/25/23 12/20/23 Rx tablet pain #25 tabs polymyxin B sulfate 10,000 1 drp ophthalmic (eye) Q3H 10 days 10/19/23 12/20/23 Rx unit-trimethoprim 1 mg/mL eye drops #10 mL insulin glargine 100 unit/mL (3 55 unit (0.55 mL) subcut QPM #45 mL 11/11/23 12/20/23 Rx mL) subcutaneous pen (Basaglar KwikPen U-100 Insulin) insulin lispro 100 unit/mL 30 unit (0.3 mL) subcut AC #90 mL 11/11/23 12/20/23 Rx subcutaneous pen (Humalog KwikPen (U-100) Insulin) lorazepam 0.5 mg tablet 0.5 mg PO DAILY PRN anxiety #30 11/11/23 12/20/23 Rx tabs pen needle, diabetic 31 gauge x #100 ea 11/25/23 12/20/23 Rx 1/4" (Comfort EZ Pen [place]) pen needle, diabetic 32 gauge x #100 ea 11/25/23 12/20/23 Rx 1/4" (BD Ultra-Fine Micro Pen Needle) levothyroxine 125 mcg tablet 125 mcg PO DAILYBB #90 tabs 11/29/23 12/20/23 Rx pantoprazole 40 mg tablet,delayed 40 mg PO QAM #90 tabs 11/29/23 12/20/23 Rx release rosuvastatin 40 mg tablet (Crestor) 40 mg PO HS #90 tabs 11/30/23 12/20/23 Rx Patient History Medical History Chronic venous insufficiency COVID-19 Peripheral neuropathy Well adult exam Gout CAD (coronary artery disease) Vitamin D deficiency GERD (gastroesophageal reflux disease) Hypothyroidism Hyperlipidemia Traumatic injury of head Surgical History History of eye surgery History of ankle surgery Hx of CABG Family History Sister Anxiety Father Diabetes Cardiac disorder Mother Breast cancer Ovarian cancer Denies family history of Prostate cancer Myocardial infarction Colorectal cancer Social History Smoking Status: Never smoker Second Hand Exposure: No; Do You Dip or Chew Tobacco: No; Hx Alcohol Use: Yes Hx Substance Use: No Preferred Language: Colombian Communication Ability: Effective Visual Impairment: Limited Hearing Ability: Normal Clinic Office Manager Required: No marital status: Current Living Situation: Alone current occupational status: employed current occupation: Self Employeed How many Children do You have: 3 Feels Safe at Home: Yes Childhood Exposure to Second-Hand Smoke: No Diet: regular caffeine: Yes Dental Care, Regularly: Yes Physical Activity Frequency: Daily Seatbelt Use: sometimes Sunscreen Use: No Physical Exam Physical Exam: Constitutional: Alert, cooperative and in no distress. HEENT: Unremarkable Neck: No jugular venous distention, carotid pulses are normal and equal bilaterally without bruits. Pulmonary: Clear to auscultation bilaterally. Cardiac: Regular rhythm with no murmur, gallop or rub. Abdomen: Soft, nontender with normal bowel sounds. Extremities: No edema. Distal pulses intact. Neurologic: No focal findings. Gait is steady. Skin: No rash, ecchymoses or petechiae. Results & Data Vital Signs (Past 12 Hours) Vital Signs Temp Pulse Resp BP Pulse Ox O2 Del Method O2 Flow Rate 12/20/23 15:30 80 78 H 134/79 96 12/20/23 15:00 77 20 154/76 H 97 12/20/23 14:57 73 16 153/76 H 96 12/20/23 14:00 79 14 93 12/20/23 13:46 75 11 L 95 12/20/23 13:46 74 12/20/23 13:05 96 Room Air 12/20/23 11:54 36.1 C L 93 H 20 142/74 H 95 Room Air 12/20/23 11:53 95 Room Air 0 Laboratory Results Cardiac Enzymes 12/20/23 12/20/23 Range/Units 11:50 14:41 AST 29 (13-39) U/L Troponin I High Sens 4.8 5.3 (0-20) pg/ml Coagulation 12/20/23 Range/Units 11:50 PT 10.9 (9.0-12.0) Seconds APTT 30 (21-31) Seconds CBC 12/20/23 Range/Units 11:50 WBC 5.49 (4.8-10.8) K/ul RBC 3.40 L (4.70-6.10) M/uL Hgb 10.2 L (14.0-18.0) g/dl Hct 30.0 L (42.0-52.0) % Plt Count 198 (130-400) K/uL Neut # (Auto) 3.49 (1.40-6.50) K/uL Lymph # (Auto) 1.42 (1.20-3.40) K/uL Angelina # (Auto) 0.43 (0.11-0.59) K/uL Eos # (Auto) 0.11 (0.00-0.50) K/uL Baso # (Auto) 0.01 (0.00-0.20) K/uL Comprehensive Metabolic Panel 12/20/23 Range/Units 11:50 Sodium 136 (136-145) mmol/L Potassium 4.0 (3.5-5.1) mmol/L Chloride 101 (98-107) mmol/L Carbon Dioxide 27 (21-32) mmol/L BUN 31 H (6-23) mg/dl Creatinine 1.04 (0.6-1.4) mg/dl Glucose 192 H (70-99(Fasting)) mg/dl Calcium 8.3 L (8.6-10.3) mg/dl AST 29 (13-39) U/L ALT 28 (7-52) U/L Alkaline Phosphatase 57 (34-104) U/L Total Protein 6.7 (6.0-8.3) gm/dl Albumin 3.7 (3.4-5.0) gm/dl Intake and Output 12/20/23 12/20/23 12/20/23 06:59 14:59 22:59 Other: Weight 139.7 kg Weight Measurement Method Built in [facility] Patient Weight 12/21/23 06:59 Weight 139.7 kg PG Care Time/CCT Total # of Minutes Spent Total Time Spent with Patient: Total time spent is greater than 50% in coordination of care (as documented) at patient's floor/unit and/or counseling patient: Coding Level of Care Code 10194 IN/OBS CONSULT LVL 4,60M Diagnoses Chest pain R07.9 Chest pain type: unspecified Coronary artery disease involving autologous artery coronary bypass graft with angina pectoris I25.729 Associated angina: with unspecified form of angina Coronary Disease-Associated Artery/Lesion type: bypass graft, autologous artery Anemia, unspecified type D64.9 Anemia type: unspecified type (1) Chest pain Chest pain type: unspecified Qualified Code(s): R07.9 - Chest pain, unspecified (2) CAD (coronary artery disease) Associated angina: with unspecified form of angina Coronary Disease- Associated Artery/Lesion type: bypass graft, autologous artery Qualified Code(s): I25.729 - Atherosclerosis of autologous artery coronary artery bypass graft(s) with unspecified angina pectoris (3) Anemia Anemia type: unspecified type Qualified Code(s): D64.9 - Anemia, unspecified
--- NOTE | 2023-12-20 17:02 | XCELERA ---
[id number] \\[id number]}___[id number]
[2023-12-20] MEDS ORDERED: LORazepam 0.5 MG TAB PO PRN (17:09)
[2023-12-20] MEDS ORDERED: BLOOD GLUCOSE METER CONTINUOUS SCH (17:15)
[2023-12-20] MEDS ORDERED: NON-FORMULARY MEDICATION (Blood-Glucose Sensor [Dexcom G6 Sensor] device) SCH (17:15)
[2023-12-20] MEDS ORDERED: NON-FORMULARY MEDICATION (Blood-Glucose Transmitter [Dexcom G6 Transmitter] device) SCH (17:15)
[2023-12-20] MEDS: ENOXAPARIN INJ 40 MG/0.4 ML SYR SQ SCH (17:53)
[2023-12-20] MEDS: INSULIN ASPART PER UNIT CHARGE SC SCH (18:00)
[2023-12-20] MEDS: TRIMETHOPRIM/POLYMYXIN B OP SCH (18:04)
[2023-12-20] MEDS ORDERED: Nursing to Pharmacy Communication SCH (19:30)
[2023-12-20] MEDS: LANTUS PER UNIT CHARGE SQ SCH (20:39)
[2023-12-20] MEDS: ROSUVASTATIN CALCIUM 20 MG TAB PO SCH (20:43)
[2023-12-20] MEDS: LOSARTAN POTASSIUM 25 MG TAB PO SCH (20:43)
[2023-12-20] MEDS: ASPIRIN 81 MG ECTAB PO SCH (20:43)
[2023-12-20] MEDS: HYDROCORTISONE 10 MG TAB PO SCH (20:43)
[2023-12-20] MEDS: NYSTATIN/TRIAMCIN CR 15 GM TUBE EXT SCH (20:44)
[2023-12-20] MEDS: hydroCHLOROthiazide 25 MG TAB PO SCH (20:44)
[2023-12-20] MEDS: PANTOprazole 40 MG TAB PO SCH (20:44)
[2023-12-21 02:39] LABS: Prothrombin Time 10.7 Seconds (9.0-12.0)
[2023-12-21 02:41] LABS: Basophils # (auto) 0.01 K/uL (0.00-0.20); Basophils % (auto) 0.2 %; Eosinophils # (auto) 0.13 K/uL (0.00-0.50); Eosinophils % (auto) 2.8 %; Hematocrit (blood only) 30.1 % (42.0-52.0); Hemoglobin 10.3 g/dl (14.0-18.0); Immature Granulocytes # (auto) 0.02 K/uL (0.01-0.20); Immature Granulocytes % (auto) 0.4 %; Lymphocytes # (auto) 1.42 K/uL (1.20-3.40); Lymphocytes % (auto) 30.4 %; Mean Corpuscular Hgb Conc 34.2 g/dL (32.0-36.0); Mean Corpuscular Volume 87.8 fL (80.0-100.0); Mean Platelet Volume 11.5 fL (9.4-12.4); Monocytes # (auto) 0.41 K/uL (0.11-0.59); Monocytes % (auto) 8.8 %; Neutrophils # (auto) 2.68 K/uL (1.40-6.50); Neutrophils % (auto) 57.4 %; Platelet Count 191 K/uL (130-400); RDW Standard Deviation 41.3 fL (36.4-46.3); Red Blood Count 3.43 M/uL (4.70-6.10); White Blood Count 4.67 K/ul (4.8-10.8)
[2023-12-21 03:11] LABS: BUN Creatinine Ratio 31.5 (10-20); Calcium 8.4 mg/dl (8.6-10.3); Creatinine Clr Calc Pharmacy 132.7 ml/min; Est GFR (African American) 109.7 ml/min; Est GFR (Non-African American) 94.6 ml/min; Magnesium 1.9 mg/dl (1.7-2.4); Potassium 3.9 mmol/L (3.5-5.1)
[2023-12-21 03:15] LABS: Troponin I High Sensitivity 4.5 pg/ml (0-20)
[2023-12-21] MEDS: LEVOTHYROXINE SODIUM 125 MCG TABLET PO SCH (06:07)
[2023-12-21] MEDS ORDERED: NON-FORMULARY MEDICATION (Insulin Lispro [Humalog Kwikpen Insulin] 100 unit/mL insulin pen SQ SCH (07:30)
[2023-12-21] MEDS ORDERED: LOSARTAN POTASSIUM 25 MG TAB PO SCH (09:00)
[2023-12-21] MEDS ORDERED: HYDROCORTISONE 10 MG TAB PO SCH (09:00)
[2023-12-21] MEDS ORDERED: ASPIRIN 81 MG ECTAB PO SCH (09:00)
[2023-12-21] MEDS ORDERED: hydroCHLOROthiazide 25 MG TAB PO SCH (09:00)
[2023-12-21] MEDS ORDERED: PANTOprazole 40 MG TAB PO SCH (09:00)
--- NOTE | 2023-12-21 12:02 | Hospitalist Progress Note ---
Date of Service December 21, 2023 Assessment & Plan (1) Chest pain: Plan: No acute EKG changes. No regional wall motion abnormality seen on cardiac echo. Troponin series is negative. Appreciate cardiology consultation and recommendations. Stress echo is pending. (2) Hypertension: Plan: Stable. 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 No intervention necessary at this time (4) Type 2 diabetes mellitus: Plan: ADA diet. Sliding scale coverage. Basal insulin therapy (5) Adrenal insufficiency: Plan: Currently on oral hydrocortisone. Will switch to parenteral stress dose hydrocortisone if he requires left heart catheterization Plan Home today, December 20, if stress echo is negative. Otherwise he will need to stay for left heart catheterization Admission and Anticipated Discharge Date Admission Date: December 20, 2023 Subjective Alert and oriented. No chest pain. Admission EKG reveals normal sinus rhythm with evidence of left anterior hemiblock and poor R wave progression. Cardiac echo reveals mild LVH with normal ejection fraction and no regional wall motion abnormalities. He does have a small clinically insignificant atrial septal defect with shunt. Troponin series is negative. Stress echo is pending this morning, December 20 Review of Systems 2 Review of Systems: Constitutional-no fever or chills ENT-no blurred vision, no double vision, no epistaxis, no sore throat Respiratory-no cough, no wheezing, no shortness of breath Cardiac-no palpitations, no chest pain, no syncope GI-no nausea, vomiting, diarrhea, melena, hematochezia -no urinary retention, no urinary incontinence, no dysuria, no hematuria Musculoskeletal-no joint pain, no muscle tenderness Skin-no bruising, no rashes, no pruritus Neuro-no isolated weakness, no paresthesia, no weakness Psych-no depression, no anxiety Physical Exam 2 Physical Exam: General-alert and oriented x3, no fever, no chills HEENT-head atraumatic and normocephalic, pupils equal and reactive to light, extraocular muscles intact Neck-no lymphadenopathy or thyromegaly, trachea midline Chest-clear to auscultation. 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 Strength symmetrical Psych-normal affect, normal mood Results & Data Results & Data Vital Signs (Past 12 Hours) Vital Signs Temp Pulse Pulse Resp BP Pulse Ox O2 Del Method 12/21/23 07:39 69 12/21/23 07:29 36.4 C L 64 18 110/60 97 Room Air 12/21/23 03:18 36.5 C 67 16 104/70 94 Room Air Laboratory Results 12/21/23 01:45 12/21/23 01:45 PG Care Time/CCT Total # of Minutes Spent Total Time Spent with Patient: Total time spent is greater than 50% in coordination of care (as documented) at patient's floor/unit and/or counseling patient: Coding Level of Care Code 87960 SUB INP/OBS CARE 3/50MIN Diagnoses Chest pain R07.9 Chest pain type: unspecified Hypertension I10 History of traumatic brain injury Z87.820 Type 2 diabetes mellitus E11.9 Adrenal insufficiency E27.40 (1) Chest pain Chest pain type: unspecified Qualified Code(s): R07.9 - Chest pain, unspecified
--- NOTE | 2023-12-21 12:56 | XCELERA ---
[id number] \\[id number]}___[id number].pdf
[2023-12-21] MEDS: niCARdipine HCL INJ 2.5 MG/ML 10 ML AMP ONE (15:08)
[2023-12-21] MEDS: MIDAZOLAM HCL 1 MG/ML 2ML VIAL ONE (15:09)
[2023-12-21] MEDS: ASPIRIN 81 MG CHEW ONE (15:12)
[2023-12-21] MEDS: fentaNYL citrate PF 100 MCG/2 ML VIAL ONE (15:20)
[2023-12-21] MEDS: OPTIRAY 350 ONE (15:21)
[2023-12-21] MEDS: NITROGLYCERIN/D5W 100MCG/ML 20ML SYR ONE (15:21)
[2023-12-21] MEDS: HEPARIN (PORCINE) 1000 UNIT/ML 10 ML (CATH LAB USE ONLY) ONE (15:21)
[2023-12-21] MEDS: hydrALAZINE HCL 20 MG/ML VIAL ONE (15:29)
--- NOTE | 2023-12-21 16:09 | Cardiac Catheterization ---
[facility] Data: [place] [employer] Cardiac Status Clinical evaluation leading to the procedure CAD Presenation: Unstable angina Anginal Classification: CCS III Heart Failure: No Cardiogenic Shock within 24 Hours: No Cardiac Arrest within 24 Hours: No Imaging Studies Past 6 Months: Yes Stress Studies Past 6 Months: Yes Stress Echocardiogram: Yes - Indeterminant Coronary Anatomy Dominant: Left Left Main (% Stenosis): Normal LAD (% Stenosis): Mid (100%) D1 (% Stenosis): Normal Circumflex (% Stenosis): Normal OM1 (% Stenosis): Normal OM2 (% Stenosis): Proximal (99 to 100%) and Mid (99 to 100%) OM3 (% Stenosis): Normal L PL1 (% Stenosis): Normal L PL2 (% Stenosis): Normal L PDA (% Stenosis): Normal (Diffuse mild) RCA (% Stenosis): Proximal (100%) Grafts - LAD (%): Normal Grafts - Circumflex (%): Ostial (Presumed occluded) Aortography Aortic Regurgitation: None Diagnostic Physicians Name: Jair Marshall MD, PhD Closure Device Percutaneous Entry Location: Femoral Closure Device: None-Manual Hold Recommendations: Medical Therapy and/or Counseling Cardiac Cath Procedure Full Procedure Date December 21, 2023 Pre-Procedure Diagnosis Pre-Procedure Diagnosis: Positive Stress Test AUC Score AUC Score: 07 Post-Procedure Diagnosis Post-Procedure Diagnosis: Severe CAD Procedure(s) Performed Procedure(s) Performed: Coronary Angiography, Ultrasound Guided Vascular Access and Aortography Intranet Support Jair Marshall MD, PhD Estimated Blood Loss Estimated Blood Loss: 20 cc Medication(s) Medication(s): Fentanyl, Heparin, Lidocaine 1% and Versed Summary of Findings Brief description: Patient was brought to the cardiac catheterization suite where he was shaved and prepped in a sterile fashion. Sedated using IV Versed and fentanyl. Soft tissues of the right groin were anesthetized using 20 mL of 1% Xylocaine. Using the ultrasound for guidance, the right femoral artery was accessed and a 5 [place] long femoral artery sheath was inserted. All catheters were advanced and exchanged over a 0.035 J-tip wire. Left coronary angiography in orthogonal views with a 5 [place] JL 4 diagnostic catheter. Right coronary angiography in orthogonal views with a 5 [place] JR4 diagnostic catheter. DO to LAD bypass graft angiography was performed with a 5 [place] JR4 diagnostic catheter. We attempted radial artery to OM bypass graft angiography with the JR4 as well as a 5 [place] LCB diagnostic catheter. We could not engage the vessel. Supravalvular aortography was performed in orthogonal views with a 5 [place] pigtail catheter. All diagnostic catheters were removed. Limited right femoral artery angiography was performed to evaluate for closure. Findings were favorable, therefore, we exchanged the 5 [place] femoral artery sheath over a long wire for a 6 [place] Angio-Seal closure device. However, we were unable to adequately enter the femoral artery with this device. There was a long tissue track and the vessel was very deep. The dilator of the Angio-Seal band inserted the wire. We therefore abandoned closure device and instead obtained hemostasis with manual compression. He was hemodynamically stable and asymptomatic. He was returned to the recovery area. This ended the case. Coronary and graft angiography findings: TYP-gpxbz-fzyjcbd vessel bifurcating into LAD and circumflex. It has diffuse luminal irregularities. LAD-medium caliber and 100% mid occlusion just after the small diagonal 1 branch. LMr-vysyx-oqlitjj and dominant vessel. Travels in the AV groove. First OM is small. The second OM is large and long. It has a proximal 99 to 100% stenosis and in the mid segment has a second lesion at 99 to 100% stenosis. Presumably this is vessel of a bypassed previously. AV groove vessel remains large providing a large OM 3 followed by 2 medium to large caliber posterolateral branches and finally terminating in a medium to large PDA. The PDA has diffuse mild disease. The remainder of the circumflex and its branches have no significant disease. RCA-small and nondominant. 100% occluded after the conus branch. DO to LAD-distal anastomosis on the distal LAD. The graft is large caliber and widely patent. Fills the [place] vessel antegrade around the apex and is seen to provide left to left collateralization as well as left to right collateralization to an RV marginal branch. There is also retrograde filling of the LAD to the mid segment where there is a second and third diagonal noted. Radial artery to OM-we are unable to identify this vessel and it is likely o ccluded. There appears to be no competitive flow in any of the observed obtuse marginal branches. Supravalvular aortography: The aorta looks dilated. There is no significant aortic insufficiency. We are unable to identify any bypass graft originating from the ascending aorta. Summary: 1. Severe [place] vessel coronary artery disease as described. 2. Patent DO to LAD, likely occluded radial graft to the OM. 3. There are no appropriate targets for PCI 4. Patient will remain on guideline directed medical therapy for secondary prevention of coronary disease including aspirin 81 mg daily, losartan 25 mg daily, and Crestor 40 mg daily. Hemodynamics Rest Ao:: 101/71 mmHg Final Ao: 170/87 mmHg LV: Not performed Recommendations Recommendations: Medical Therapy and/or Counseling Radiation Exposure (mGy) 2578 mGy, fluoroscopy time 11 minutes Contrast (mls) 185 mL Anesthesia 2 mg Versed, 50 mcg fentanyl IV. Start 1435, and 1541 Procedural Complication(s) None Disposition [place] [employer] Holding/Recovery I attest to the content of the Intraoperative Record and any orders documented therein. Any exceptions are noted below. [facility] Card Cath Procedure Codes Cardiac Catheterization Procedure 1: Cardiovascular Cath Procedures: 76289 Coronaries and Grafts/IM (venous & atrial) Procedure 2: Cardiovascular Cath Procedures: 60793 Supravalvular Aortography (Injection during Cardiac Cath) Therapeutic Services & Ancillary Procedure 1: Cardiovascular Tx and Anc Procedures: 16916 Ultrasonic Guidance Vascular Access Moderate Sedation Procedure 1: Sedation/Anesthesia: 50836 Mod Sedation by the same physician;Init15 Min Child Age 5 & Up (Initial 15 minutes, start time 1435) Procedure 2: Sedation/Anesthesia: 59749 Mod Sedation by the same physician; Ea [id number] Minutes (Additional 51 min, end time 1541) PG Care Time/CCT Total # of Minutes Spent Total Time Spent with Patient: Total time spent is greater than 50% in coordination of care (as documented) at patient's floor/unit and/or counseling patient:
--- NOTE | 2023-12-21 16:10 | Pre Anesthesia Assessment ---
Date of Service December 21, 2023 Pre Sedation Assessment Vital Signs Temp Pulse Pulse Pulse Resp BP BP 12/21/23 15:55 73 18 142/72 H 12/21/23 13:59 77 18 138/101 H 12/21/23 07:39 69 12/21/23 07:29 36.4 C L 64 18 110/60 12/21/23 03:18 36.5 C 67 16 104/70 12/20/23 23:35 76 12/20/23 23:07 36.9 C 66 18 93/54 L 12/20/23 19:21 36.6 C 80 20 127/89 12/20/23 19:11 36.4 C L 79 18 132/85 12/20/23 17:25 81 12/20/23 17:04 36.6 C 80 20 127/89 Pulse Ox O2 Del Method 12/21/23 15:55 97 Room Air 12/21/23 13:59 99 Room Air 12/21/23 07:39 12/21/23 07:29 97 Room Air 12/21/23 03:18 94 Room Air 12/20/23 23:35 12/20/23 23:07 96 Room Air 12/20/23 19:21 95 Room Air 12/20/23 19:11 98 Room Air 12/20/23 17:25 12/20/23 17:04 95 Room Air Cardiovascular RRR, no murmur, no edema Respiratory normal respiratory effort, lungs clear to auscultation Pre-Sedation Airway Assessment Smoking Status: Never smoker Hx Sleep Apnea: No Short, Thick Neck: No Thyromental Distance: > or= 3.5 Finger Breadths Oral Cavity: + WNL Mallampati Class: III ASA: ASA3 NPO Status Date of Last Intake of Fluids: 12/21/23 Time of Last Intake of Fluids: 08:00 Date of Last Intake of Solid Food: 12/20/23 Time of Last Intake of Solid Foods: 21:00 Notes The planned sedation has been discussed with the patient. Informed Consent was obtained. I have identified the patient, determined the appropriateness of sedation and have assessed the patient immediately prior to the procedure. All medicine(s) and interventions are by my order.
--- NOTE | 2023-12-21 16:12 | Post Anesthesia Assessment ---
Date of Service December 21, 2023 Post Sedation Assessment Vital Signs Temp Pulse Pulse Pulse Resp BP BP 12/21/23 15:55 73 18 142/72 H 12/21/23 13:59 77 18 138/101 H 12/21/23 07:39 69 12/21/23 07:29 36.4 C L 64 18 110/60 12/21/23 03:18 36.5 C 67 16 104/70 12/20/23 23:35 76 12/20/23 23:07 36.9 C 66 18 93/54 L 12/20/23 19:21 36.6 C 80 20 127/89 12/20/23 19:11 36.4 C L 79 18 132/85 12/20/23 17:25 81 12/20/23 17:04 36.6 C 80 20 127/89 Pulse Ox O2 Del Method 12/21/23 15:55 97 Room Air 12/21/23 13:59 99 Room Air 12/21/23 07:39 12/21/23 07:29 97 Room Air 12/21/23 03:18 94 Room Air 12/20/23 23:35 12/20/23 23:07 96 Room Air 12/20/23 19:21 95 Room Air 12/20/23 19:11 98 Room Air 12/20/23 17:25 12/20/23 17:04 95 Room Air Recovery Score Activity: Moves 4 extremities Respiration: Deep Breath/Cough Circulation: +/-20% PreAnes Value Consciousness: Fully Awake Oxygen Saturation: > 92% On Room Air Post Anesthesia Score: 10 Discharge Sedation Level of Care: Fast Track Phase II Post Sedation Plan On clinical assessment, the patient appears to have tolerated the sedation without complications. Patient is recovering as anticipated. Patient will continue to be monitored by nursing and may be discharged when sedation discharge criteria are met per below protocol. Upon Completions of procedure up to 15 minutes continue every 5 minute vital signs and the P.A.R. score; then discharge to a Phase I or Fast Track to Phase II per the following guidelines: * Discharge Patient to appropriate Phase II area if PAR is 8 or greater or return to pre- procedure baseline. The post - procedure orders will be as directed. * If PAR score is less than 8 or not return to pre-procedure baseline then patient will follow Phase I monitoring till PAR is reached for Phase II. The Phase I may be done in procedure room or may call to secure a Phase I area. * If naloxone or flumazenil are used for reversal, hold in Phase I for continued monitoring from when last reversal dose was given for a minimum of 60 minutes or longer pending the nurse and/or physician discretion of patient condition before discharge to Phase II. Please call the Sedation Physician to re-evaluate and complete post-note for discharge to Phase II area. Do NOT discharge from procedure sedation or Phase 1 until post- sedation evaluation note is complete by procedure /sedation MD Sedation Discharge Instructions to be given to the patient at discharge to home. [facility] Procedure Codes (Charges) Indication for Procedure Indication for procedure: Unstable angina, equivocal stress test Sedation/Anesthesia Procedure 1: Sedation/Anesthesia: 67396 Mod Sedation by the same physician;Init15 Min Child Age 5 & Up (Initial 15 min, start 1435) Total Sedation Time (minutes): 66 Procedure 2: Sedation/Anesthesia: 26230 Mod Sedation by the same physician; Ea [id number] Minutes (Additional 51 min, end time 1541) Total Sedation Time (minutes): 66
[2023-12-21] MEDS ORDERED: NITROGLYCERIN SL 0.4 MG/TAB TAB SL PRN (16:30)
[2023-12-21] MEDS: HYDROCORTISONE SOD 50 MG in SYRINGE 0 ML IV SCH (20:40)
[2023-12-21] MEDS: METOPROLOL TARTRATE 25 MG TAB PO SCH (20:43)
[2023-12-21] MEDS: LOSARTAN POTASSIUM 25 MG TAB PO SCH (20:45)
[2023-12-21] MEDS: ACETAMINOPHEN 325 MG TAB PO PRN (22:28)
[2023-12-21] MEDS: PANTOprazole 40 MG TAB PO SCH (22:58)
[2023-12-22 06:52] LABS: Basophils # (auto) 0.01 K/uL (0.00-0.20); Basophils % (auto) 0.2 %; Eosinophils # (auto) 0.09 K/uL (0.00-0.50); Eosinophils % (auto) 1.4 %; Hematocrit (blood only) 32.3 % (42.0-52.0); Immature Granulocytes # (auto) 0.02 K/uL (0.01-0.20); Immature Granulocytes % (auto) 0.3 %; Lymphocytes # (auto) 1.68 K/uL (1.20-3.40); Lymphocytes % (auto) 25.3 %; Mean Corpuscular Hgb Conc 34.1 g/dL (32.0-36.0); Mean Platelet Volume 11.3 fL (9.4-12.4); Monocytes # (auto) 0.32 K/uL (0.11-0.59); Monocytes % (auto) 4.8 %; Neutrophils # (auto) 4.52 K/uL (1.40-6.50); Platelet Count 230 K/uL (130-400); RDW Coefficient of Variation 13.1 % (11.5-14.5); RDW Standard Deviation 42.4 fL (36.4-46.3); Red Blood Count 3.67 M/uL (4.70-6.10); White Blood Count 6.64 K/ul (4.8-10.8)
[2023-12-22 07:14] LABS: BUN Creatinine Ratio 27.3 (10-20); Calcium 8.5 mg/dl (8.6-10.3); Creatinine Clr Calc Pharmacy 122.8 ml/min; Est GFR (African American) 100.4 ml/min; Est GFR (Non-African American) 86.6 ml/min; Potassium 4.5 mmol/L (3.5-5.1)
--- NOTE | 2023-12-22 11:29 | Discharge Summary ---
Date of Service December 22, 2023 Admission HPI Per Admitting Provider This is a pleasant 53-year-old male who has a history of coronary artery disease he is status post three-vessel CABG approximately 9 years ago. Over the last few days he has had increasing fatigue especially with exertion but no lori chest pain until today when he walked across the parking lot at his place of employment when he developed mid substernal and left-sided chest discomfort. He went to his primary care doctor's office. At that time he was given aspirin and directed to the ER for further evaluation and treatment. Upon presentation here he was pain-free. His troponin is negative. His EKG is reassuring/nonacute. Per the patient's history he reports that he had an outpatient stress test and Dr. Donnelly's office approximately 2 months ago. I am not privy to these results at this time in this electronic medical record. Therefore we have ordered serial troponins we have ordered an echocardiogram and we have consulted cardiology -we will keep the patient n.p.o. after midnight in case cardiology would like to do an ischemic workup whether that stress test versus heart catheterization given the patient's history and risk factors. Principal Diagnosis Angina pectoris Discharge Exam General-alert and oriented x3, no fever, no chills HEENT-head atraumatic and normocephalic, pupils equal and reactive to light, extraocular muscles intact Neck-no lymphadenopathy or thyromegaly, trachea midline Chest-clear to auscultation. 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 Strength symmetrical Psych-normal affect, normal mood Discharge Data Allergies Allergy/AdvReac Type Severity Reaction Status Date / Time dulaglutide [From [facility]] AdvReac Severe GI UPSET Verified 12/20/23 10:59 Consultations 12/20/23 14:13 ED Decision to Admit Stat 12/20/23 14:29 Consult Cardiology Routine Procedures Performed Operation Date: 12/21/23 13:00 Actual Procedures p Cineradiography w/Routine Exam - Jair Marshall MD, PhD p Cath, Cors with Grafts (no LV) - Jair Marshall MD, PhD s Ultrasound Vascular Access - Jair Marshall MD, PhD Ordered Studies 12/21/23 13:22 CL Cath Imgs for PACS use only Urgent Hospital Course (1) Chest pain: This was most likely angina pectoris. Cardiology consultation appreciated. Left heart catheterization was completed yesterday, December 20, and he was found to have an occluded bypass graft to the first marginal branch. Unfortunately, there were no lesions that required intervention. He is a candidate for medical management going forward. Parenteral hydrocortisone has been switched back to his usual oral dosing. This caused hyperglycemia as expected. He will be discharged to home today, December 21. Troponin series is negative. No evidence of acute coronary syndrome. Abnormal stress echo prompted left heart catheterization to be done. (2) Hypertension: Stable. 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 No intervention necessary at this time (4) Type 2 diabetes mellitus: ADA diet. Sliding scale coverage. Basal insulin therapy (5) Adrenal insufficiency: He is steroid-dependent. Parenteral hydrocortisone administered around the time he had the heart catheterization. This aggravated the type 2 diabetes as expected. He is now switched back to his usual oral hydrocortisone dosage. Expect glucose to return to baseline. Plan Home today, December 21 Total Time Total Time Spent Total Time Spent (In Minutes): 45 minutes Discharge Plan Discharge Items Patient Disposition: Home - Self-Care Reason For Visit: CHEST PAIN Discharge Diagnosis: Angina pectoris Activity: As commented below Activity Comment: Avoid overexertion Non-emergency contact: Primary Care Provider and Rack Carrier Call non-emergency contact if: your symptoms worsen Follow-up/Referrals: Carol Morley CRNP [Primary Care Provider] - Diet: Carb Consistent or DM2 and Heart Healthy Addtl Attending Provider Instructions: Use nitroglycerin under the tongue as directed for any recurrent chest discomfort. Metoprolol tartrate 25 mg twice a day has been added to the medication regimen. [facility] Pending Studies at Discharge: No Stand-Alone Forms: My Easy[employer], Smoking Cessation Medications and DC Order Prescriptions: New metoprolol tartrate 25 mg Tablet 25 mg PO BID Qty: 60 0RF Continued (DME) Dexcom G6 Tube Room Cashier Misc See Rx Instructions .ROUTE .MEDSUPPLY Qty: 1 0RF Rx Instructions: test 4 x a day diclofenac sodium 75 mg tablet,delayed release (DR/EC) 75 mg PO BID PRN (Reason: Gout - Pain) Qty: 90 3RF (DME) Dexcom G6 Sensor Device See Rx Instructions .ROUTE .MEDSUPPLY Qty: 3 5RF Rx Instructions: test 4 x a day (DME) Dexcom G6 Transmitter Device See Rx Instructions .ROUTE .MEDSUPPLY Qty: 1 0RF Rx Instructions: test 4 x a day polymyxin B sulf-trimethoprim 10,000 unit- 1 mg/mL drops 1 drp ophthalmic (eye) Q3H 10 Days Qty: 10 0RF Rx Instructions: while awake; do not exceed 6 doses in 24 hours insulin glargine [Basaglar KwikPen U-100 Insulin] 100 unit/mL (3 mL) insulin pen 55 unit subcut QPM Qty: 45 1RF insulin lispro [Humalog KwikPen Insulin] 100 unit/mL insulin pen 30 unit subcut AC MDD 90u Qty: 90 3RF lorazepam 0.5 mg tablet 0.5 mg PO DAILY PRN (Reason: anxiety) Qty: 30 0RF Rx Instructions: 1 tab at bedtime (DME) pen needle, diabetic [BD Ultra-Fine Micro Pen Needle] 32 gauge x 1/4" needle See Dose Instructions .ROUTE .MEDSUPPLY Qty: 100 3RF Rx Instructions: As directed (DME) pen needle, diabetic [Comfort EZ Pen [place]] 31 gauge x 1/4" needle See Rx Instructions .Route Qty: 100 3RF Rx Instructions: As directed levothyroxine 125 mcg tablet 125 mcg PO DAILYBB Qty: 90 3RF rosuvastatin [Crestor] 40 mg tablet 40 mg PO HS Qty: 90 3RF nitroglycerin 0.4 mg tablet, sublingual 0.4 mg sublingual Q5M PRN (Reason: chest pain) Qty: 25 4RF Rx Instructions: up to 3 doses. If no resolution of Chest pain after 5 min, call 911. nystatin-triamcinolone 100,000-0.1 unit/g-% cream 1 applic topical BID Qty: 30 3RF ibuprofen 200 mg Tablet 200 mg PO Q6H PRN (Reason: Pain) ergocalciferol (vitamin D2) 1,250 mcg (50,000 unit) Capsule 1,250 mcg PO YE@0900 aspirin 81 mg Tablet,Delayed Release (Dr/Ec) 81 mg PO HS pantoprazole 40 mg Tablet,Delayed Release (Dr/Ec) 40 mg PO HS losartan 25 mg tablet 25 mg PO HS hydrochlorothiazide 25 mg tablet 25 mg PO HS hydrocortisone 10 mg tablet 10 mg PO HS Discharge Orders: Discharge Order (Routine); Ordered 12/22/23 Ordered By: Tejas Hernandez Admission Data Admit Date/Time: 12/21/23 15:34 Attending Provider: Tejas Hernandez Admit Provider: Ruben Harper Primary Care Provider: Carol Morley Other Providers: Ruben Harper; Eugene Hardin Coding Level of Care Code 46187 INP/OBS DISCH >30 MIN Diagnoses Chest pain R07.9 Chest pain type: unspecified Hypertension I10 History of traumatic brain injury Z87.820 Type 2 diabetes mellitus E11.9 Adrenal insufficiency E27.40
[2023-12-22] MEDS: INSULIN ASPART PER UNIT CHARGE SC ONE (11:51)
[2023-12-22] MEDS ORDERED: HYDROCORTISONE 10 MG TAB PO SCH (21:00)
[2023-12-25] MEDS ORDERED: ERGOCALCIFEROL 1250 MCG (50,000 UNITS) CAP PO SCH (09:00)
== END 2023-12-22 12:29 | disposition home or self-care (01) | DRG 287 ==
LOC: 2N 11:46 → ED 11:46 → SUATTDRO 14:09 → 2N 15:58 → 2S 12-21 16:28
PROC: CLB.CCG (2023-12-21 13:00)